=== PATIENT | female | born 1970 | race Caucasian/White ===

== ENCOUNTER → 2017-01-22 | Outpatient (CLI) | payer OTHER ==
[~2017-01-22] MED LIST: PRAV40TA2 PO
[2017-01-22 12:43] LABS: BASO % 0.4 % (0.0-1.0); EOS # 0.2 K/mm3 (0.0-0.50); EOS % 2.3 % (0.0-3.0); LARGE UNSTAINED CELL # 0.1 K/mm3 (0.0-0.4); LARGE UNSTAINED CELL % 1.2 % (0.0-4.0); LYMPH % 20.2 % (24.0-44.0); MEAN CORPUSCULAR HEMOGLOBIN 26.3 pg (27.0-33.0); MEAN CORPUSCULAR HGB CONC 32.6 g/dl (32.0-36.5); MEAN CORPUSCULAR VOLUME 80.8 fl (80.0-96.0); MONO # 0.4 K/mm3 (0.0-0.8); MONO % 4.2 % (0.0-5.0); NEUTROPHILS % 71.6 % (36.0-66.0); PLATELET COUNT, AUTOMATED 211 k/mm3 (150-450); RED CELL DISTRIBUTION WIDTH 14.4 % (11.5-14.5); WHITE BLOOD COUNT 9.7 K/mm3 (4.0-10.0)
[2017-01-22 13:10] LABS: ALBUMIN/GLOBULIN RATIO 1.43 (1.00-1.93); ALKALINE PHOSPHATASE 39 U/L (45-117); ALT/SGPT 17 U/L (12-78); ANION GAP 8 MEQ/L (8-16); AST/SGOT 15 U/L (15-37); BILIRUBIN,TOTAL 0.6 MG/DL (0.2-1.0); BLOOD UREA NITROGEN 11 MG/DL (7-18); CARBON DIOXIDE LEVEL 27 MEQ/L (21-32); CHLORIDE LEVEL 106 MEQ/L (98-107); CHOLESTEROL LEVEL 158 MG/DL (<200); CREATININE FOR GFR 0.73 MG/DL (0.55-1.02); FREE T4 1.08 NG/DL (0.76-1.46); GLOMERULAR FILTRATION RATE > 60.0 (>58); GLUCOSE, FASTING 87 MG/DL (70-105); POTASSIUM SERUM 4.3 MEQ/L (3.5-5.1); SODIUM LEVEL 141 MEQ/L (136-145); TOTAL PROTEIN 6.8 GM/DL (6.4-8.2); TRIGLYCERIDES LEVEL 111 MG/DL (<150)
== END ==
LOC: M LRY 08:00
PROVIDERS: ATTEND Family Medicine
DX: Z13.220 Encounter for screening for lipoid disorders (principal); Z13.0 Encounter for screening for diseases of the blood and blood-forming organs and certain disorders involving the immune mechanism; Z13.29 Encounter for screening for other suspected endocrine disorder

== ENCOUNTER → 2017-03-19 | Outpatient (CLI) | payer OTHER ==
--- NOTE | 2017-03-19 19:36 | REP ---
BILATERAL MAMMOGRAM: Bilateral mammography performed in the MLO and CC projections and compared to multiple prior exams. Most recently 03/06/2016. Moderate fibroglandular tissue is again seen bilaterally. There is a dominant 5 cm nodule in the upper outer quadrant of the left breast. Cysts were previously identified in this region on exams from 2014. No other mass is seen. No clustered microcalcifications are seen. IMPRESSION: 5 cm mass upper outer quadrant left breast probably represents a cyst but I would recommend spot compression views and ultrasound to confirm. ACR 0 incomplete. BI-RADS/ACR category 0 mammogram, incomplete. Additional imaging and/or prior images are needed before a final assessment can be assigned. This mammogram was interpreted with the aid of an FDA-approved computer-aided detection system. The patient states she had a clinical breast exam in 02/2017. The patient letter being requested is M0. Signed by Jonathan Sebastian MD 03/20/2017 05:19 P
== END ==
LOC: M RAD 15:53
PROVIDERS: ATTEND Nurse Practitioner Adult Health
DX: Z12.31 Encounter for screening mammogram for malignant neoplasm of breast (principal)

== ENCOUNTER → 2017-03-27 | Outpatient (CLI) | payer OTHER ==
--- NOTE | 2017-03-27 17:35 | REP ---
Digital diagnostic unilateral left breast mammography with CAD and focused left breast sonography: History: Screening mammography March 06, 2016 was BIRADS category 0 because of a large neodensity projecting in the upper outer quadrant. Comparison is also made with prior mammography from March 06, 2016. Mammographic findings: Magnified focal spot compression CC and MLO views are obtained of the left breast in addition to laterally exaggerated and true ML views. These confirm the presence of a well-circumscribed 4.3 cm soft tissue density in the upper outer quadrant. No spiculation or microcalcification is seen. Breast parenchyma is heterogeneously dense. Sonographic findings: The left breast is scanned from 12 o'clock to 3 o'clock through the upper outer quadrant. Heterogeneously echodense fibroglandular background texture is seen. A large cyst is noted at 1-o'clock to 2-o'clock measuring 3.5 x 4.0 x 1.6 cm. This is anechoic with enhanced through transmission and a well defined back wall consistent with a benign simple cyst. No other significant sonographic finding. Impression: BIRADS category 2 benign left breast imaging. 4.0 cm simple cyst confirmed in the upper outer quadrant of the left breast. Annual screening mammography suggested. BI-RADS/ACR category 2 mammogram. Benign finding(s). Routine annual screening mammography (for women over age 40). This mammogram was interpreted with the aid of an FDA-approved computer-aided detection system. The patient states she/he had a clinical breast exam in February 2017. The patient letter being requested is M1 ([employer]). Signed by Fredo Rice MD 03/28/2017 08:17 A
== END ==
LOC: M RAD 15:43
PROVIDERS: ATTEND Nurse Practitioner Adult Health
DX: R92.2 Inconclusive mammogram (principal)

== ENCOUNTER → 2018-01-22 | Outpatient (CLI) | payer OTHER ==
[2018-01-22 11:43] LABS: BASO # 0.1 10^3/uL (0.0-0.2); BASO % 0.7 % (0.0-1.0); EOS # 0.3 10^3/uL (0.0-0.50); EOS % 2.7 % (0.0-3.0); HEMATOCRIT 44.8 % (36.0-47.0); HEMOGLOBIN 14.5 g/dl (12.0-15.5); IMMATURE GRANULOCYTE % 0.3 % (0-3.0); LYMPH # 2.5 10^3/uL (1.5-4.5); LYMPH % 27.5 % (24.0-44.0); MEAN CORPUSCULAR HEMOGLOBIN 25.6 pg (27.0-33.0); MEAN CORPUSCULAR HGB CONC 32.4 g/dl (32.0-36.5); MONO # 0.6 10^3/uL (0.0-0.8); MONO % 6.5 % (0.0-5.0); NEUTROPHILS # 5.7 10^3/uL (1.8-7.7); NEUTROPHILS % 62.3 % (36.0-66.0); PLATELET COUNT, AUTOMATED 188 10^3/uL (150-450); RED BLOOD COUNT 5.67 10^6/uL (4.00-5.40); RED CELL DISTRIBUTION WIDTH 15.2 % (11.5-14.5); WHITE BLOOD COUNT 9.1 10^3/uL (4.0-10.0)
[2018-01-22 12:12] LABS: ALBUMIN 3.9 GM/DL (3.2-5.2); ALBUMIN/GLOBULIN RATIO 1.22 (1.00-1.93); ALKALINE PHOSPHATASE 48 U/L (45-117); ALT/SGPT 24 U/L (12-78); ANION GAP 9 MEQ/L (8-16); AST/SGOT 16 U/L (7-37); BILIRUBIN,TOTAL 0.5 MG/DL (0.2-1.0); BLOOD UREA NITROGEN 9 MG/DL (7-18); CALCIUM LEVEL 8.6 MG/DL (8.5-10.1); CARBON DIOXIDE LEVEL 27 MEQ/L (21-32); CHLORIDE LEVEL 106 MEQ/L (98-107); CHOLESTEROL LEVEL 156 MG/DL (<200); CREATININE FOR GFR 0.75 MG/DL (0.55-1.30); FREE T4 1.03 NG/DL (0.76-1.46); GLOMERULAR FILTRATION RATE > 60.0 (>51); GLUCOSE, FASTING 80 MG/DL (70-100); HDL CHOLESTEROL 50 MG/DL (>40); LDL CHOLESTEROL 80.6 MG/DL (<100); NON-HDL-C 106 MG/DL; POTASSIUM SERUM 4.5 MEQ/L (3.5-5.1); SODIUM LEVEL 142 MEQ/L (136-145); TOTAL PROTEIN 7.1 GM/DL (6.4-8.2); TRIGLYCERIDES LEVEL 127 MG/DL (<150)
== END ==
LOC: M LRY 08:41
DX: E78.00 Pure hypercholesterolemia, unspecified (principal); Z13.29 Encounter for screening for other suspected endocrine disorder; Z13.0 Encounter for screening for diseases of the blood and blood-forming organs and certain disorders involving the immune mechanism
CPT/HCPCS: 84443

== ENCOUNTER → 2018-03-21 | Outpatient (CLI) | payer OTHER | LOC: M RAD 17:19 | DX: Z12.31 Encounter for screening mammogram for malignant neoplasm of breast (principal); N60.02 Solitary cyst of left breast | CPT/HCPCS: 77067 ==

== ENCOUNTER → 2018-08-12 | Outpatient (CLI) | payer OTHER ==
--- NOTE | 2018-08-13 09:31 | REP ---
Clinical: Varicose veins and venous insufficiency. Technique: Real time crawley scale and color Doppler evaluation using linear high frequency transducer with reflux evaluation. Findings: Ultrasound examination of the right lower extremity deep venous structures from the common femoral vein to the popliteal vein demonstrates normal compressibility, flow, and wave patterns in response to respiration and augmentation without evidence for deep venous thrombosis. Reflux evaluation demonstrates thrombosed distal greater saphenous vein consistent with given history of prior ablation. Reflux is identified within the visualized common femoral vein as well as the proximal to mid greater saphenous vein measuring 10 mm diameter at the saphenofemoral junction with 3.4 seconds reflux duration and measuring 6 mm diameter at the mid thigh with 5.6 seconds reflux duration. Varicosities with associated reflux identified with in the calf draining into the deep venous system through multiple perforators. Impression: 1. No evidence for deep venous thrombosis. 2. Reflux noted through the proximal/mid greater saphenous vein as well as through multiple varicosities at the level of the calf. Electronically Signed by Michele Virk MD 08/13/2018 09:22 A
== END ==
LOC: M RAD 10:17
PROVIDERS: ATTEND Surgery Vascular Surgery
DX: I87.2 Venous insufficiency (chronic) (peripheral) (principal)

== ENCOUNTER → 2018-08-19 | Outpatient (CLI) | payer OTHER ==
--- NOTE | 2018-08-19 16:43 | REP ---
Clinical: Abnormal uterine bleeding . Technique: Transabdominal pelvic ultrasound followed by transvaginal examination for better evaluation of the endometrium and adnexa with color Doppler evaluation of the ovaries. Findings: Bladder this is unremarkable and measures 11.3 x 8.8 x 9.2 cm . Heterogeneous anteverted uterus measures 7.6 x 3.5 x 4.7 cm. The endometrial complex measures 8.2 mm thickness and appears heterogeneous with possible ill-defined polyp cannot be excluded. No discrete uterine or endometrial abnormalities are appreciated. Small Nabothian cyst noted. Bilateral ovaries are normal in appearance and vascularity without evidence for torsion. Right ovary measures 2.9 x 1.9 x 1.5 cm ; R I = 0.60 . Left ovary measures 2.8 x 1.9 x 1.7 cm ; R I = 0.43. No pelvic fluid or adnexal mass lesion. Impression: 1. Heterogeneous uterus and endometrial complex. See small ill-defined endometrial polyp cannot be excluded. Electronically Signed by Michele Virk MD 08/19/2018 04:34 P
== END ==
LOC: M RAD 15:48
PROVIDERS: ATTEND Nurse Practitioner Adult Health
DX: N85.8 Other specified noninflammatory disorders of uterus (principal); N85.4 Malposition of uterus

== ENCOUNTER → 2019-02-19 | Outpatient (CLI) | payer OTHER ==
[2019-02-19 11:41] LABS: BASO # 0.1 10^3/uL (0.0-0.2); BASO % 0.9 % (0.0-1.0); EOS # 0.4 10^3/uL (0.0-0.50); EOS % 4.1 % (0.0-3.0); HEMATOCRIT 44.8 % (36.0-47.0); HEMOGLOBIN 14.6 g/dl (12.0-15.5); LYMPH # 2.4 10^3/uL (1.5-4.5); LYMPH % 27.9 % (24.0-44.0); MEAN CORPUSCULAR HEMOGLOBIN 25.9 pg (27.0-33.0); MEAN CORPUSCULAR HGB CONC 32.6 g/dl (32.0-36.5); MEAN CORPUSCULAR VOLUME 79.4 fl (80.0-96.0); MONO # 0.6 10^3/uL (0.0-0.8); MONO % 7.4 % (0.0-5.0); NEUTROPHILS # 5.1 10^3/uL (1.8-7.7); NEUTROPHILS % 59.3 % (36.0-66.0); PLATELET COUNT, AUTOMATED 206 10^3/uL (150-450); RED BLOOD COUNT 5.64 10^6/uL (4.00-5.40); WHITE BLOOD COUNT 8.5 10^3/uL (4.0-10.0)
[2019-02-19 12:02] LABS: ALT/SGPT 25 U/L (12-78); BILIRUBIN,TOTAL 0.7 MG/DL (0.2-1.0); BLOOD UREA NITROGEN 10 MG/DL (7-18); CALCIUM LEVEL 9.5 MG/DL (8.5-10.1); CARBON DIOXIDE LEVEL 27 MEQ/L (21-32); CHLORIDE LEVEL 108 MEQ/L (98-107); CHOLESTEROL LEVEL 166 MG/DL (<200); CHOLESTEROL RISK RATIO 3.254 (<5); CREATININE FOR GFR 0.73 MG/DL (0.55-1.30); FREE T4 0.99 NG/DL (0.76-1.46); GLOMERULAR FILTRATION RATE > 60.0 (>51); GLUCOSE, FASTING 79 MG/DL (70-100); HDL CHOLESTEROL 51 MG/DL (>40); LDL CHOLESTEROL 95 MG/DL (<100); NON-HDL-C 115 MG/DL; POTASSIUM SERUM 4.3 MEQ/L (3.5-5.1); SODIUM LEVEL 141 MEQ/L (136-145); TRIGLYCERIDES LEVEL 101 MG/DL (<150)
== END ==
LOC: M LRY 08:04
PROVIDERS: ATTEND Family Medicine
DX: E78.00 Pure hypercholesterolemia, unspecified (principal); Z13.0 Encounter for screening for diseases of the blood and blood-forming organs and certain disorders involving the immune mechanism; Z13.29 Encounter for screening for other suspected endocrine disorder

== ENCOUNTER → 2019-04-15 | Outpatient (CLI) | payer OTHER ==
--- NOTE | 2019-04-15 14:12 | REPMRS ---
Patient History The patient states she had a clinical breast exam in September 2018.Family history of colorectal cancer at age 34 in brother, colorectal cancer at age 50 or over in maternal grandmother. Benign lumpectomy of the right breast, June 01, 2008. 3D TOMOSYNTHESIS WAS PERFORMED. [facility]%. Digital Mammo Screening Bilat: April 15, 2019 - Exam #: [id number] Bilateral CC and MLO view(s) were taken. Technologist: Marcela Cramer, Technologist Prior study comparison: October 11, 2018, left breast digital mammo diagnostic unilateral performed at [facility]. March 21, 2018, bilateral digital mammo screening bilat performed at [facility]. FINDINGS: The breast tissue is heterogeneously dense. This may lower the sensitivity of mammography. There has been no change in the appearance of the mammogram from the prior studies. There is a moderate amount of residual fibroglandular tissue which is fairly symmetric. There is no interval development of dominant mass, areas of architectural distortion, or clustered microcalcification typical of malignancy. The left breast cyst has decreased in size. Assessment: BI-RADS/ACR category 1 mammogram. Negative Mammogram. Recommendation Routine screening mammogram in 1 year (for women over age 40). This mammogram was interpreted with the aid of an FDA-approved computer-aided dectection system. Electronically Signed By: Jonathan Sebastian MD 04/15/19 [id number]
== END ==
LOC: M RAD 12:46
PROVIDERS: ATTEND Family Medicine
DX: Z12.31 Encounter for screening mammogram for malignant neoplasm of breast (principal); Z80.0 Family history of malignant neoplasm of digestive organs

== ENCOUNTER → 2019-09-08 | Outpatient (CLI) | payer OTHER ==
[2019-09-08 16:13] LABS: BASO # 0.1 10^3/uL (0.0-0.2); EOS # 0.2 10^3/uL (0.0-0.5); EOS % 1.9 % (0.0-3.0); HEMATOCRIT 44.5 % (36.0-47.0); HEMOGLOBIN 14.1 g/dl (12.0-15.5); LYMPH # 2.5 10^3/uL (1.5-5.0); LYMPH % 26.1 % (24.0-44.0); MEAN CORPUSCULAR HEMOGLOBIN 25.2 pg (27.0-33.0); MEAN CORPUSCULAR HGB CONC 31.7 g/dl (32.0-36.5); MEAN CORPUSCULAR VOLUME 79.5 fl (80.0-96.0); MONO # 0.6 10^3/uL (0.0-0.8); MONO % 6.1 % (0.0-5.0); NEUTROPHILS # 6.1 10^3/uL (1.5-8.5); NEUTROPHILS % 64.5 % (36.0-66.0); PLATELET COUNT, AUTOMATED 208 10^3/uL (150-450); WHITE BLOOD COUNT 9.4 10^3/uL (4.0-10.0)
[2019-09-08 16:24] LABS: ALBUMIN 4.2 GM/DL (3.2-5.2); ALT/SGPT 345 U/L (12-78); BILIRUBIN,TOTAL 0.7 MG/DL (0.2-1.0); BLOOD UREA NITROGEN 12 MG/DL (7-18); C REACTIVE PROTEIN QUANTITATIV < 0.30 MG/DL (0.00-0.30); CALCIUM LEVEL 9.2 MG/DL (8.5-10.1); CARBON DIOXIDE LEVEL 27 MEQ/L (21-32); CHLORIDE LEVEL 106 MEQ/L (98-107); CREATININE FOR GFR 0.68 MG/DL (0.55-1.30); FREE T4 1.31 NG/DL (0.76-1.46); GLOMERULAR FILTRATION RATE > 60.0 (>51); GLUCOSE, FASTING 94 MG/DL (70-100); IRON (FE) 132 UG/DL (50-170); PERCENT SATURATION 39.4 % (13.2-45.0); SODIUM LEVEL 140 MEQ/L (136-145); THYROID STIMULATING HORMONE 0.543 uIU/ML (0.358-3.740); TOTAL IRON BINDING CAPACITY 335 UG/DL (250-450); TOTAL PROTEIN 7.7 GM/DL (6.4-8.2)
[2019-09-08 16:35] LABS: ERYTHROCYTE SEDIMENTATION RATE 5 mm/hr (0-30)
--- NOTE | 2019-09-08 20:20 | REP ---
Clinical: Cough . Comparison: None. Technique: PA and lateral. Findings: The mediastinum and cardiac silhouette are normal. The lung deshpande are clear and without acute consolidation, effusion, or pneumothorax. The skeletal structures are intact and normal. Impression: 1. No acute cardiopulmonary process. Electronically Signed by Michele Virk MD 09/08/2019 08:12 P
[2019-09-10 14:07] LABS: Lyme Disease IgG/IgM Antibodie <0.91 ISR (0.00-0.90); Lyme Disease IgM Ab Quantitati <0.80 index (0.00-0.79)
== END ==
LOC: M WUC 11:14
PROVIDERS: ATTEND Family Medicine
DX: R05 Cough (principal); R53.83 Other fatigue

== ENCOUNTER → 2019-09-18 | Outpatient (CLI) | payer OTHER ==
[2019-09-18 11:37] LABS: BASO # 0.1 10^3/uL (0.0-0.2); BASO % 1.3 % (0.0-1.0); EOS # 0.2 10^3/uL (0.0-0.5); EOS % 2.4 % (0.0-3.0); HEMATOCRIT 41.9 % (36.0-47.0); HEMOGLOBIN 13.8 g/dl (12.0-15.5); LYMPH # 2.5 10^3/uL (1.5-5.0); LYMPH % 31.2 % (24.0-44.0); MEAN CORPUSCULAR HGB CONC 32.9 g/dl (32.0-36.5); MEAN CORPUSCULAR VOLUME 79.1 fl (80.0-96.0); MONO # 0.6 10^3/uL (0.0-0.8); MONO % 7.7 % (0.0-5.0); NEUTROPHILS # 4.6 10^3/uL (1.5-8.5); PLATELET COUNT, AUTOMATED 257 10^3/uL (150-450)
[2019-09-18 12:04] LABS: ALBUMIN 4.1 GM/DL (3.2-5.2); ALT/SGPT 58 U/L (12-78); BILIRUBIN,TOTAL 0.5 MG/DL (0.2-1.0); BLOOD UREA NITROGEN 13 MG/DL (7-18); CALCIUM LEVEL 9.4 MG/DL (8.5-10.1); CARBON DIOXIDE LEVEL 27 MEQ/L (21-32); CHLORIDE LEVEL 105 MEQ/L (98-107); GLOMERULAR FILTRATION RATE > 60.0 (>51); GLUCOSE, FASTING 81 MG/DL (70-100); POTASSIUM SERUM 4.5 MEQ/L (3.5-5.1); SODIUM LEVEL 139 MEQ/L (136-145); TOTAL PROTEIN 7.4 GM/DL (6.4-8.2)
== END ==
LOC: M LRY 09:15
PROVIDERS: ATTEND Family Medicine
DX: R74.8 Abnormal levels of other serum enzymes (principal)

== ENCOUNTER → 2020-03-27 | Outpatient (CLI) | payer OTHER ==
[2020-03-27 12:50] LABS: BASO # 0.1 10^3/uL (0.0-0.2); BASO % 0.9 % (0.0-1.0); EOS # 0.3 10^3/uL (0.0-0.5); EOS % 3.1 % (0.0-3.0); HEMATOCRIT 44.9 % (36.0-47.0); HEMOGLOBIN 14.4 g/dl (12.0-15.5); LYMPH # 2.5 10^3/uL (1.5-5.0); LYMPH % 28.6 % (24.0-44.0); MEAN CORPUSCULAR HEMOGLOBIN 25.5 pg (27.0-33.0); MEAN CORPUSCULAR HGB CONC 32.1 g/dl (32.0-36.5); MEAN CORPUSCULAR VOLUME 79.6 fl (80.0-96.0); MONO # 0.6 10^3/uL (0.0-0.8); MONO % 6.6 % (0.0-5.0); NEUTROPHILS # 5.4 10^3/uL (1.5-8.5); NEUTROPHILS % 60.5 % (36.0-66.0); PLATELET COUNT, AUTOMATED 214 10^3/uL (150-450); RED BLOOD COUNT 5.64 10^6/uL (4.00-5.40); WHITE BLOOD COUNT 8.9 10^3/uL (4.0-10.0)
[2020-03-27 13:20] LABS: ALBUMIN 3.9 GM/DL (3.2-5.2); ALT/SGPT 24 U/L (12-78); BILIRUBIN,TOTAL 0.4 MG/DL (0.2-1.0); BLOOD UREA NITROGEN 14 MG/DL (7-18); CALCIUM LEVEL 8.8 MG/DL (8.5-10.1); CARBON DIOXIDE LEVEL 25 MEQ/L (21-32); CHLORIDE LEVEL 108 MEQ/L (98-107); CHOLESTEROL LEVEL 186 MG/DL (<200); CHOLESTEROL RISK RATIO 3.206 (<5); CREATININE FOR GFR 0.76 MG/DL (0.55-1.30); FREE T4 1.06 NG/DL (0.76-1.46); GLOMERULAR FILTRATION RATE > 60.0 (>51); GLUCOSE, FASTING 81 MG/DL (70-100); HDL CHOLESTEROL 58 MG/DL (>40); LDL CHOLESTEROL 114 MG/DL (<100); NON-HDL-C 128 MG/DL; POTASSIUM SERUM 4.4 MEQ/L (3.5-5.1); SODIUM LEVEL 140 MEQ/L (136-145); TOTAL PROTEIN 7.1 GM/DL (6.4-8.2); TRIGLYCERIDES LEVEL 69 MG/DL (<150)
== END ==
LOC: M WUC 08:53
PROVIDERS: ATTEND Family Medicine
DX: E78.00 Pure hypercholesterolemia, unspecified (principal); Z13.29 Encounter for screening for other suspected endocrine disorder; Z13.0 Encounter for screening for diseases of the blood and blood-forming organs and certain disorders involving the immune mechanism

== ENCOUNTER → 2020-04-16 | Outpatient (CLI) | payer OTHER ==
--- NOTE | 2020-04-16 15:03 | REPMRS ---
Patient History The patient states she had a clinical breast exam in 03/2020. Patient is nulliparous. Family history of colorectal cancer at age 34 in brother, colorectal cancer at age 50 or over in maternal grandmother. Benign lumpectomy of the right breast, June 01, 2008. No Hormone Replacement Therapy 3D TOMOSYNTHESIS WAS PERFORMED. [facility] lifetime risk for breast cancer is 11.4%. Volpara breast density b. Digital Woman Screen Mammo: April 16, 2020 - Exam #: [id number] Bilateral CC and MLO view(s) were taken. Technologist: Priscilla Barraza, Technologist Prior study comparison: April 15, 2019, bilateral digital mammo screening bilat, performed at [facility]. October 11, 2018, left breast digital mammo diagnostic unilateral, performed at [facility]. FINDINGS: The breast tissue is heterogeneously dense. This may lower the sensitivity of mammography. There is a fairly symmetric fibroglandular pattern in both breasts. There has been no interval development of masses, areas of architectural distortion or clusters of microcalcifications typical of malignancy. The left breast cyst is again noted unchanged. No significant changes when compared with prior studies. Assessment: BI-RADS/ACR category 2 mammogram. Benign Findings. Recommendation Routine screening mammogram of both breasts in 1 year (for women over age 40). This mammogram was interpreted with the aid of an FDA-approved computer-aided dectection system. Electronically Signed By: Jonathan Sebastian MD 04/16/20 [id number]
== END ==
LOC: M WHC 13:30
PROVIDERS: ATTEND Family Medicine
DX: Z12.31 Encounter for screening mammogram for malignant neoplasm of breast (principal)

== ENCOUNTER 2021-02-09 19:42 | Emergency (ER) | payer OTHER ==
[~2021-02-09] VITALS: Ht 160 cm; Wt 69.9 kg
[2021-02-09 19:42] VITALS: BP 139/82
== END 2021-02-09 19:49 | disposition left against medical advice (07) ==
LOC: M ED 19:42
DX: Z53.29 Procedure and treatment not carried out because of patient's decision for other reasons (principal)

== ENCOUNTER → 2021-04-04 | Outpatient (CLI) | payer OTHER ==
[2021-04-04 14:53] LABS: BASO # 0.1 10^3/uL (0.0-0.2); BASO % 0.7 % (0.0-1.0); EOS # 0.2 10^3/uL (0.0-0.5); EOS % 3.2 % (0.0-3.0); HEMATOCRIT 44.7 % (36.0-47.0); HEMOGLOBIN 14.1 g/dl (12.0-15.5); LYMPH # 2.3 10^3/uL (1.5-5.0); LYMPH % 31.1 % (24.0-44.0); MEAN CORPUSCULAR HEMOGLOBIN 25.1 pg (27.0-33.0); MEAN CORPUSCULAR HGB CONC 31.5 g/dl (32.0-36.5); MEAN CORPUSCULAR VOLUME 79.5 fl (80.0-96.0); MONO # 0.6 10^3/uL (0.0-0.8); MONO % 7.6 % (2.0-8.0); NEUTROPHILS # 4.2 10^3/uL (1.5-8.5); NEUTROPHILS % 57.1 % (36.0-66.0); PLATELET COUNT, AUTOMATED 207 10^3/uL (150-450); RED BLOOD COUNT 5.62 10^6/uL (4.00-5.40); WHITE BLOOD COUNT 7.4 10^3/uL (4.0-10.0)
[2021-04-04 15:52] LABS: ALBUMIN 3.9 GM/DL (3.2-5.2); ALT/SGPT 18 U/L (12-78); BILIRUBIN,TOTAL 0.4 MG/DL (0.2-1.0); BLOOD UREA NITROGEN 12 MG/DL (7-18); CALCIUM LEVEL 9.8 MG/DL (8.5-10.1); CARBON DIOXIDE LEVEL 28 MEQ/L (21-32); CHLORIDE LEVEL 108 MEQ/L (98-107); CHOLESTEROL LEVEL 174 MG/DL (<200); CHOLESTEROL RISK RATIO 3.866 (<5); CREATININE FOR GFR 0.72 MG/DL (0.55-1.30); FREE T4 1.13 NG/DL (0.76-1.46); GLOMERULAR FILTRATION RATE > 60.0 (>51); GLUCOSE, FASTING 89 MG/DL (70-100); HDL CHOLESTEROL 45 MG/DL (>40); LDL CHOLESTEROL 111 MG/DL (<100); NON-HDL-C 129 MG/DL; POTASSIUM SERUM 4.2 MEQ/L (3.5-5.1); SODIUM LEVEL 140 MEQ/L (136-145); TOTAL PROTEIN 7.1 GM/DL (6.4-8.2); TRIGLYCERIDES LEVEL 92 MG/DL (<150)
== END ==
LOC: M WUC 08:06
PROVIDERS: ATTEND Family Medicine
DX: E78.00 Pure hypercholesterolemia, unspecified (principal); Z13.0 Encounter for screening for diseases of the blood and blood-forming organs and certain disorders involving the immune mechanism; Z13.29 Encounter for screening for other suspected endocrine disorder

== ENCOUNTER → 2021-04-18 | Outpatient (CLI) | payer OTHER ==
--- NOTE | 2021-04-18 10:58 | REP ---
INDICATION: PLEURODYNIA. COMPARISON: PA and lateral chest, 09/08/2019 TECHNIQUE: Upright PA chest image supplemented by port ischial views of the left-sided ribs were obtained. FINDINGS: The lungs are clear. The heart borders, mediastinum and pulmonary vascular pattern normal. The upper abdominal bowel gas pattern is normal. There is mild dextroscoliosis of the thoracic spine. Examination the left ribs demonstrates no evidence of fracture. There is no evidence of pneumothorax, pulmonary contusion or pleural effusion. IMPRESSION: 1. No evidence of acute cardiopulmonary pathology. 2. No evidence of left rib fractures. <Electronically signed by Louis Neely > 04/18/21 [id number]
== END ==
LOC: M PLAIMG 10:16
PROVIDERS: ATTEND Family Medicine
DX: R07.81 Pleurodynia (principal)

== ENCOUNTER → 2021-05-04 | Outpatient (CLI) | payer OTHER ==
--- NOTE | 2021-05-04 16:54 | REPMRS ---
Patient History The patient states she has not had a clinical breast exam in over a year. Family history of colorectal cancer at age 34 in brother, colorectal cancer at age 50 or over in maternal grandmother. Benign lumpectomy of the right breast, June 01, 2008. No Hormone Replacement Therapy Tomosynthesis is performed. Volpara breast density is b. [facility] lifetime risk of breast cancer 11.1%. Patient states no breast complaints today. Patient has signed MRS History Sheet. Digital Woman Screen Mammo: May 04, 2021 - Exam #: [id number] Bilateral CC and MLO view(s) were taken. Technologist: Anette Sultana, Technologist Prior study comparison: April 16, 2020, bilateral digital woman screen mammo performed at [facility]. April 15, 2019, bilateral digital mammo screening bilat, performed at [facility]. FINDINGS: The breast tissue is heterogeneously dense. This may lower the sensitivity of mammography. There is a fairly symmetric fibroglandular pattern in both breasts. There has been no interval development of masses, areas of architectural distortion or clusters of microcalcifications typical of malignancy. There is a stable cyst in the upper outer quadrant of the left breast. No significant changes when compared with prior studies. Assessment: BI-RADS/ACR category 2 mammogram. Benign Findings. Recommendation Routine screening mammogram in 1 year (for women over age 40). This mammogram was interpreted with the aid of an FDA-approved computer-aided dectection system. Electronically Signed By: Jonathan Sebastian MD 05/04/21 1234
== END ==
LOC: M WHC 15:41
PROVIDERS: ATTEND Family Medicine
DX: Z12.31 Encounter for screening mammogram for malignant neoplasm of breast (principal)

== ENCOUNTER 2021-07-14 10:37 | Day surgery (SDC) | payer OTHER ==
[~2021-07-14] VITALS: Ht 160 cm; Wt 68.9 kg
[~2021-07-14 10:37] MED LIST changes: +NS 1,000 ML IV ONE; +RA T500C2 PO
[2021-07-14] MEDS ORDERED: propofoL 500 MG/50 ML VIAL As Ordered ONE (11:16)
[2021-07-14] MEDS ORDERED: fentaNYL 100 MCG/2 ML INJECTION (J3010) As Ordered ONE (12:07)
[2021-07-14 12:58] VITALS: BP 104/65
== END 2021-07-14 13:07 | disposition home or self-care (01) ==
LOC: M OPP 10:37
PROVIDERS: ATTEND Internal Medicine Gastroenterology
DX: Z12.11 Encounter for screening for malignant neoplasm of colon (principal); Z86.010 Personal history of colon polyps; Z80.0 Family history of malignant neoplasm of digestive organs; Z80.8 Family history of malignant neoplasm of other organs or systems; K57.30 Diverticulosis of large intestine without perforation or abscess without bleeding; K64.8 Other hemorrhoids; Z15.09 Genetic susceptibility to other malignant neoplasm; K22.89 Other specified disease of esophagus; R12 Heartburn; K31.89 Other diseases of stomach and duodenum; Z79.899 Other long term (current) drug therapy; Z88.1 Allergy status to other antibiotic agents; Z88.8 Allergy status to other drugs, medicaments and biological substances; F17.210 Nicotine dependence, cigarettes, uncomplicated
CPT/HCPCS: 43239; 45378; 88305; J3010

== ENCOUNTER 2021-11-12 12:40 | Emergency (ER) | payer OTHER ==
[~2021-11-12] VITALS: Ht 160 cm; Wt 68.6 kg
[~2021-11-12 12:40] MED LIST changes: -NS 1,000 ML IV ONE
[2021-11-12] MEDS ORDERED: LORazepam 2 MG/ML VIAL IV STA (13:05)
[2021-11-12] MEDS ORDERED: MORPHINE 4 MG/ML 1ML VIAL/SYRINGE IV PRN (13:05)
[2021-11-12] MEDS ORDERED: ONDANSETRON 4MG/2ML VIAL IV ONE (13:05)
[2021-11-12] MEDS ORDERED: BOOSTRIX/ADACEL VACCINE (DIPHTH/PERTUSS/ACELL/TETANUS) 0.5ML SYR IM ONE (13:35)
[2021-11-12] MEDS ORDERED: NS 1,000 ML IV SCH (13:40)
[2021-11-12] MEDS ORDERED: propofoL 200 MG/20 ML VIAL IV.PROC PRN (13:40)
[2021-11-12] MEDS ORDERED: LevoFLOXacin IV 500 MG in IV 1 EA IV ONE (14:10)
[2021-11-12 14:20] VITALS: BP 139/71
[2021-11-12] MEDS ORDERED: LEVO500T4 PO (14:53)
== END 2021-11-12 15:51 | disposition home or self-care (01) ==
LOC: EDBD 12:40 → M ED 12:40
DX: S91.342A Puncture wound with foreign body, left foot, initial encounter (principal); W27.1XXA Contact with garden tool, initial encounter; Y92.018 Other place in single-family (private) house as the place of occurrence of the external cause; I10 Essential (primary) hypertension; Z88.0 Allergy status to penicillin; Z88.8 Allergy status to other drugs, medicaments and biological substances; Z79.899 Other long term (current) drug therapy
CPT/HCPCS: 73620; 73630; 90471; 90715; 93041; 96365; 96375; 99152; 99285; J1956; J2060; J2270; J2405

== ENCOUNTER → 2022-05-08 | Outpatient (CLI) | payer OTHER ==
[~2022-05-08] MED LIST changes: +LEVO1TAB39 PO
== END ==
LOC: M WHC 16:00
PROVIDERS: ATTEND Family Medicine
DX: Z12.31 Encounter for screening mammogram for malignant neoplasm of breast (principal)

== ENCOUNTER → 2022-09-22 | Outpatient (REF) | payer OTHER ==
[2022-09-22 12:01] LABS: BASO # 0.1 10^3/uL (0.0-0.2); BASO % 0.9 % (0.0-1.0); EOS # 0.2 10^3/uL (0.0-0.5); HEMATOCRIT 42.7 % (36.0-47.0); HEMOGLOBIN 13.5 g/dl (12.0-15.5); LYMPH # 2.3 10^3/uL (1.5-5.0); MEAN CORPUSCULAR HEMOGLOBIN 25.1 pg (27.0-33.0); MEAN CORPUSCULAR HGB CONC 31.6 g/dl (32.0-36.5); MEAN CORPUSCULAR VOLUME 79.5 fl (80.0-96.0); MONO # 0.6 10^3/uL (0.0-0.8); MONO % 6.8 % (2.0-8.0); NEUTROPHILS # 4.9 10^3/uL (1.5-8.5); NEUTROPHILS % 60.8 % (36.0-66.0); PLATELET COUNT, AUTOMATED 200 10^3/uL (150-450); RED BLOOD COUNT 5.37 10^6/uL (4.00-5.40)
[2022-09-22 12:09] LABS: ALBUMIN 4.2 G/DL (3.2-5.2); ALKALINE PHOSPHATASE 58 U/L (46-116); ALT/SGPT 25 U/L (7.0-40); AST/SGOT 27 U/L (<34); BILIRUBIN,TOTAL 0.6 MG/DL (0.3-1.2); BLOOD UREA NITROGEN 14 MG/DL (9-23); CALCIUM LEVEL 9.6 MG/DL (8.5-10.1); CARBON DIOXIDE LEVEL 29 MMOL/L (20-31); CHLORIDE LEVEL 106 MMOL/L (98-107); CHOLESTEROL LEVEL 143 MG/DL (<200); CHOLESTEROL RISK RATIO 2.62 (<5); CREATININE FOR GFR 0.68 MG/DL (0.55-1.30); FREE T4 1.13 NG/DL (0.89-1.76); GLOMERULAR FILTRATION RATE > 60.0 (>51); GLUCOSE, FASTING 88 MG/DL (60-100); HDL CHOLESTEROL 54.5 MG/DL (>40); LDL CHOLESTEROL 75.1 MG/DL (<100); NON-HDL-C 88.5 MG/DL; POTASSIUM SERUM 4.2 MMOL/L (3.5-5.1); SODIUM LEVEL 139 MMOL/L (136-145); THYROID STIMULATING HORMONE 1.065 uIU/ML (0.55-4.78); TOTAL PROTEIN 6.7 G/DL (5.7-8.2); TRIGLYCERIDES LEVEL 67 MG/DL (<150)
== END ==
LOC: M LABDRAWC 11:11
PROVIDERS: ATTEND Family Medicine
DX: E78.00 Pure hypercholesterolemia, unspecified (principal)

== ENCOUNTER → 2022-10-12 | Outpatient (CLI) | payer OTHER ==
[~2022-10-12] MED LIST changes: +E-Z-GAS II EFFERVESCENT PACKET (SODIUM BICARB./CITRIC ACID/SIMETHICONE) As Ordered ONE; +E-Z-HD 98% w/w 340GM SUSP BTL As Ordered ONE; +E-Z-PAQUE 96% w/w SUSP 176GM BTL As Ordered ONE
== END ==
LOC: M RAD 09:01
PROVIDERS: ATTEND Physician Assistant Medical
DX: R11.10 Vomiting, unspecified (principal); R12 Heartburn; K44.9 Diaphragmatic hernia without obstruction or gangrene

== ENCOUNTER → 2022-10-25 | Outpatient (CLI) | payer OTHER ==
[~2022-10-25] MED LIST changes: -E-Z-GAS II EFFERVESCENT PACKET (SODIUM BICARB./CITRIC ACID/SIMETHICONE) As Ordered ONE; -E-Z-HD 98% w/w 340GM SUSP BTL As Ordered ONE; -E-Z-PAQUE 96% w/w SUSP 176GM BTL As Ordered ONE
== END ==
LOC: M RAD 11:30
PROVIDERS: ATTEND Physician Assistant Medical
DX: R11.10 Vomiting, unspecified (principal)
CPT/HCPCS: 78264; A9541

== ENCOUNTER → 2023-04-10 | Outpatient (REF) | payer OTHER ==
[2023-04-10 13:10] LABS: BASO # 0.1 10^3/uL (0.0-0.2); BASO % 0.8 % (0.0-1.0); EOS # 0.2 10^3/uL (0.0-0.5); EOS % 3.1 % (0.0-3.0); HEMATOCRIT 44.7 % (36.0-47.0); LYMPH # 2.1 10^3/uL (1.5-5.0); LYMPH % 27.9 % (24.0-44.0); MEAN CORPUSCULAR HEMOGLOBIN 24.8 pg (27.0-33.0); MEAN CORPUSCULAR HGB CONC 31.3 g/dl (32.0-36.5); MEAN CORPUSCULAR VOLUME 79.1 fl (80.0-96.0); MONO # 0.5 10^3/uL (0.0-0.8); NEUTROPHILS # 4.6 10^3/uL (1.5-8.5); NEUTROPHILS % 61.1 % (36.0-66.0); PLATELET COUNT, AUTOMATED 201 10^3/uL (150-450); RED BLOOD COUNT 5.65 10^6/uL (4.00-5.40); WHITE BLOOD COUNT 7.5 10^3/uL (4.0-10.0)
[2023-04-10 13:17] LABS: ALKALINE PHOSPHATASE 68 U/L (46-116); ALT/SGPT 21 U/L (7.0-40); AST/SGOT 21 U/L (<34); BILIRUBIN,TOTAL 0.4 MG/DL (0.3-1.2); BLOOD UREA NITROGEN 14 MG/DL (9-23); CALCIUM LEVEL 9.2 MG/DL (8.5-10.1); CARBON DIOXIDE LEVEL 28 MMOL/L (20-31); CHLORIDE LEVEL 108 MMOL/L (98-107); CHOLESTEROL LEVEL 153 MG/DL (<200); CHOLESTEROL RISK RATIO 2.95 (<5); CREATININE FOR GFR 0.67 MG/DL (0.55-1.30); FREE T4 1.07 NG/DL (0.89-1.76); GLOMERULAR FILTRATION RATE > 60.0 (>51); GLUCOSE, FASTING 96 MG/DL (60-100); HDL CHOLESTEROL 51.7 MG/DL (>40); LDL CHOLESTEROL 83.9 MG/DL (<100); NON-HDL-C 101.3 MG/DL; POTASSIUM SERUM 4.2 MMOL/L (3.5-5.1); SODIUM LEVEL 143 MMOL/L (136-145); THYROID STIMULATING HORMONE 1.622 uIU/ML (0.55-4.78); TOTAL PROTEIN 6.9 G/DL (5.7-8.2); TRIGLYCERIDES LEVEL 87 MG/DL (<150)
== END ==
LOC: M LABDRAWC 11:25
PROVIDERS: ATTEND Family Medicine
DX: E78.00 Pure hypercholesterolemia, unspecified (principal)

== ENCOUNTER → 2023-05-16 | Outpatient (CLI) | payer OTHER | LOC: M WHC 09:32 | PROVIDERS: ATTEND Family Medicine | DX: Z12.31 Encounter for screening mammogram for malignant neoplasm of breast (principal); Z13.820 Encounter for screening for osteoporosis ==

== ENCOUNTER → 2023-10-16 | Outpatient (CLI) | payer OTHER ==
[2023-10-16 11:03] LABS: BASO # 0.1 10^3/uL (0.0-0.2); EOS # 0.2 10^3/uL (0.0-0.5); EOS % 2.6 % (0.0-3.0); HEMATOCRIT 45.6 % (36.0-47.0); HEMOGLOBIN 14.4 g/dl (12.0-15.5); LYMPH # 2.9 10^3/uL (1.5-5.0); LYMPH % 32.9 % (24.0-44.0); MEAN CORPUSCULAR HEMOGLOBIN 24.7 pg (27.0-33.0); MEAN CORPUSCULAR HGB CONC 31.6 g/dl (32.0-36.5); MEAN CORPUSCULAR VOLUME 78.4 fl (80.0-96.0); MONO # 0.6 10^3/uL (0.0-0.8); MONO % 6.4 % (2.0-8.0); NEUTROPHILS # 4.9 10^3/uL (1.5-8.5); NEUTROPHILS % 56.9 % (36.0-66.0); PLATELET COUNT, AUTOMATED 199 10^3/uL (150-450); RED BLOOD COUNT 5.82 10^6/uL (4.00-5.40); WHITE BLOOD COUNT 8.7 10^3/uL (4.0-10.0)
[2023-10-16 12:04] LABS: ALBUMIN 4.2 G/DL (3.2-5.2); ALKALINE PHOSPHATASE 69 U/L (46-116); ALT/SGPT 17 U/L (7.0-40); AST/SGOT 24 U/L (<34); BILIRUBIN,TOTAL 0.5 MG/DL (0.3-1.2); BLOOD UREA NITROGEN 14 MG/DL (9-23); CALCIUM LEVEL 9.7 MG/DL (8.5-10.1); CARBON DIOXIDE LEVEL 25 MMOL/L (20-31); CHLORIDE LEVEL 106 MMOL/L (98-107); CHOLESTEROL LEVEL 151 MG/DL (<200); CHOLESTEROL RISK RATIO 2.99 (<5); CREATININE FOR GFR 0.72 MG/DL (0.55-1.30); FREE T4 1.11 NG/DL (0.89-1.76); GLOMERULAR FILTRATION RATE > 60.0 (>51); GLUCOSE, FASTING 88 MG/DL (60-100); HDL CHOLESTEROL 50.4 MG/DL (>40); LDL CHOLESTEROL 81.2 MG/DL (<100); NON-HDL-C 100.6 MG/DL; POTASSIUM SERUM 4.2 MMOL/L (3.5-5.1); SODIUM LEVEL 141 MMOL/L (136-145); TRIGLYCERIDES LEVEL 97 MG/DL (<150)
[2023-10-16 16:04] LABS: IRON (FE) 68 UG/DL (50-170)
[2023-10-16 16:05] LABS: PERCENT SATURATION 21.1 % (13.2-45.0); TOTAL IRON BINDING CAPACITY 323 UG/DL (250-425)
[2023-10-16 16:09] LABS: FERRITIN 37.1 NG/ML (7.3-270.7); FOLATE 13.6 NG/ML (>5.4); VITAMIN B12 LEVEL 446 PG/ML (211-911)
== END ==
LOC: M WUC 08:04
PROVIDERS: ATTEND Family Medicine
DX: E78.00 Pure hypercholesterolemia, unspecified (principal); K21.9 Gastro-esophageal reflux disease without esophagitis

== ENCOUNTER → 2023-10-23 | Outpatient (CLI) | payer OTHER | LOC: M PLALAB 10:53 | PROVIDERS: ATTEND Family Medicine | DX: M25.552 Pain in left hip (principal) ==

== ENCOUNTER → 2024-04-30 | Outpatient (CLI) | payer OTHER ==
[2024-04-30 11:21] LABS: BASO # 0.1 10^3/uL (0.0-0.2); BASO % 0.9 % (0.0-1.0); EOS # 0.3 10^3/uL (0.0-0.5); EOS % 2.8 % (0.0-3.0); HEMATOCRIT 44.8 % (36.0-47.0); HEMOGLOBIN 14.1 g/dl (12.0-15.5); LYMPH # 2.4 10^3/uL (1.5-5.0); LYMPH % 27.6 % (24.0-44.0); MEAN CORPUSCULAR HEMOGLOBIN 24.6 pg (27.0-33.0); MEAN CORPUSCULAR HGB CONC 31.5 g/dl (32.0-36.5); MEAN CORPUSCULAR VOLUME 78.2 fl (80.0-96.0); MONO # 0.6 10^3/uL (0.0-0.8); MONO % 7.2 % (2.0-8.0); NEUTROPHILS # 5.4 10^3/uL (1.5-8.5); PLATELET COUNT, AUTOMATED 216 10^3/uL (150-450); RED BLOOD COUNT 5.73 10^6/uL (4.00-5.40); WHITE BLOOD COUNT 8.9 10^3/uL (4.0-10.0)
[2024-04-30 11:40] LABS: ALBUMIN 4.2 G/DL (3.2-5.2); ALKALINE PHOSPHATASE 64 U/L (35-104); ALT/SGPT 19 U/L (7.0-40); AST/SGOT 17 U/L (<34); BILIRUBIN,TOTAL 0.6 MG/DL (0.3-1.2); BLOOD UREA NITROGEN 11 MG/DL (9-23); CALCIUM LEVEL 10.2 MG/DL (8.5-10.1); CARBON DIOXIDE LEVEL 29 MMOL/L (20-31); CHLORIDE LEVEL 107 MMOL/L (98-107); CHOLESTEROL LEVEL 159 MG/DL (<200); CHOLESTEROL RISK RATIO 3.11 (<5); CREATININE FOR GFR 0.74 MG/DL (0.55-1.30); GLOMERULAR FILTRATION RATE > 60.0 (>51); GLUCOSE, FASTING 98 MG/DL (60-100); HDL CHOLESTEROL 51.1 MG/DL (>40); LDL CHOLESTEROL 87.1 MG/DL (<100); NON-HDL-C 107.9 MG/DL; POTASSIUM SERUM 4.5 MMOL/L (3.5-5.1); SODIUM LEVEL 142 MMOL/L (136-145); TOTAL PROTEIN 7.3 G/DL (5.7-8.2); TRIGLYCERIDES LEVEL 104 MG/DL (<150)
[2024-04-30 11:41] LABS: FREE T4 1.33 NG/DL (0.89-1.76); THYROID STIMULATING HORMONE 0.924 uIU/ML (0.55-4.78)
== END ==
LOC: M WUC 08:08
PROVIDERS: ATTEND Family Medicine
DX: E78.00 Pure hypercholesterolemia, unspecified (principal)

== ENCOUNTER → 2024-05-28 | Outpatient (CLI) | payer OTHER | LOC: M RAD 09:56 | PROVIDERS: ATTEND Family Medicine | DX: I82.811 Embolism and thrombosis of superficial veins of right lower extremity (principal); R05.1 Acute cough ==

== ENCOUNTER → 2024-06-03 | Outpatient (CLI) | payer OTHER | LOC: M WHC 15:35 | PROVIDERS: ATTEND Family Medicine | DX: Z12.31 Encounter for screening mammogram for malignant neoplasm of breast (principal) ==

== ENCOUNTER 2024-08-28 10:19 | Day surgery (SDC) | payer OTHER ==
[~2024-08-28] VITALS: Ht 160 cm; Wt 72.2 kg
[~2024-08-28 10:19] MED LIST changes: +LIDOCAINE 2% 100MG/5ML SDV (FOR ANES.) As Ordered ONE; +OMEP-173 PO; +OSTETAB2 PO; +ROSU20TA86 PO; +ZYRTTAB8 PO; +propofoL 200 MG/20 ML VIAL As Ordered ONE
[2024-08-28] MEDS ORDERED: GLYCOPYRROLATE INJ 0.2 MG/ML 2 ML VIAL As Ordered ONE (11:39)
[2024-08-28 12:25] VITALS: BP 115/62; O2SAT 98
== END 2024-08-28 12:34 | disposition home or self-care (01) ==
LOC: M OPP 10:19
PROVIDERS: ATTEND Internal Medicine Gastroenterology
DX: K22.70 Barrett's esophagus without dysplasia (principal); R12 Heartburn; K22.89 Other specified disease of esophagus; Z88.1 Allergy status to other antibiotic agents; F17.210 Nicotine dependence, cigarettes, uncomplicated; Z80.0 Family history of malignant neoplasm of digestive organs; Z15.09 Genetic susceptibility to other malignant neoplasm
CPT/HCPCS: 43239; 45378; 88305; J1596

== ENCOUNTER → 2024-10-20 | Outpatient (REF) | payer OTHER ==
[~2024-10-20] MED LIST changes: -LIDOCAINE 2% 100MG/5ML SDV (FOR ANES.) As Ordered ONE; -propofoL 200 MG/20 ML VIAL As Ordered ONE
== END ==
LOC: M LAB REF 16:44
PROVIDERS: ATTEND Nurse Practitioner Adult Health
DX: Z20.828 Contact with and (suspected) exposure to other viral communicable diseases (principal)

== ENCOUNTER → 2024-10-29 | Outpatient (CLI) | payer OTHER ==
[2024-10-29 13:56] LABS: BASO # 0.1 10^3/uL (0.0-0.2); BASO % 0.6 % (0.0-1.0); EOS # 0.3 10^3/uL (0.0-0.5); EOS % 3.1 % (0.0-3.0); HEMATOCRIT 46.3 % (36.0-47.0); HEMOGLOBIN 14.6 g/dl (12.0-15.5); LYMPH # 2.6 10^3/uL (1.5-5.0); LYMPH % 30.5 % (24.0-44.0); MEAN CORPUSCULAR HEMOGLOBIN 24.5 pg (27.0-33.0); MEAN CORPUSCULAR HGB CONC 31.5 g/dl (32.0-36.5); MEAN CORPUSCULAR VOLUME 77.6 fl (80.0-96.0); MONO # 0.6 10^3/uL (0.0-0.8); MONO % 6.6 % (2.0-8.0); NEUTROPHILS # 4.9 10^3/uL (1.5-8.5); PLATELET COUNT, AUTOMATED 222 10^3/uL (150-450); RED BLOOD COUNT 5.97 10^6/uL (4.00-5.40); WHITE BLOOD COUNT 8.4 10^3/uL (4.0-10.0)
[2024-10-29 14:26] LABS: FREE T4 1.29 NG/DL (0.89-1.76); THYROID STIMULATING HORMONE 1.201 uIU/ML (0.55-4.78)
[2024-10-29 14:28] LABS: ALBUMIN 4.2 G/DL (3.2-5.2); ALKALINE PHOSPHATASE 69 U/L (35-104); ALT/SGPT 20 U/L (7.0-40); AST/SGOT 18 U/L (<34); BILIRUBIN,TOTAL 0.5 MG/DL (0.3-1.2); BLOOD UREA NITROGEN 12 MG/DL (9-23); CALCIUM LEVEL 9.7 MG/DL (8.5-10.1); CARBON DIOXIDE LEVEL 30 MMOL/L (20-31); CHLORIDE LEVEL 107 MMOL/L (98-107); CHOLESTEROL LEVEL 152 MG/DL (<200); CHOLESTEROL RISK RATIO 3.06 (<5); GLOMERULAR FILTRATION RATE > 90.0 (>51); GLUCOSE, FASTING 79 MG/DL (60-100); HDL CHOLESTEROL 49.6 MG/DL (>40); LDL CHOLESTEROL 76.6 MG/DL (<100); NON-HDL-C 102.4 MG/DL; POTASSIUM SERUM 4.1 MMOL/L (3.5-5.1); SODIUM LEVEL 146 MMOL/L (136-145); TOTAL PROTEIN 7.4 G/DL (5.7-8.2); TRIGLYCERIDES LEVEL 129 MG/DL (<150)
== END ==
LOC: M WUC 08:09
PROVIDERS: ATTEND Family Medicine
DX: E78.00 Pure hypercholesterolemia, unspecified (principal); Z13.0 Encounter for screening for diseases of the blood and blood-forming organs and certain disorders involving the immune mechanism; Z13.29 Encounter for screening for other suspected endocrine disorder

== ENCOUNTER → 2025-04-14 | Outpatient (CLI) | payer OTHER ==
[~2025-04-14] MED LIST changes: -PRAV40TA2 PO; +PRAV40TA85 PO; -RA T500C2 PO; +TURM500C10 PO
[2025-04-14 12:46] LABS: BASO # 0.1 10^3/uL (0.0-0.2); BASO % 1.1 % (0.0-1.0); EOS # 0.3 10^3/uL (0.0-0.5); EOS % 3.3 % (0.0-3.0); LYMPH # 2.9 10^3/uL (1.5-5.0); LYMPH % 30.9 % (24.0-44.0); MONO # 0.6 10^3/uL (0.0-0.8); MONO % 6.9 % (2.0-8.0); NEUTROPHILS # 5.3 10^3/uL (1.5-8.5); NEUTROPHILS % 57.6 % (36.0-66.0); PLATELET COUNT, AUTOMATED 234 10^3/uL (150-450)
[2025-04-14 12:50] LABS: FREE T4 1.21 NG/DL (0.89-1.76)
[2025-04-14 12:52] LABS: ALT/SGPT 19 U/L (7.0-40); AST/SGOT 25 U/L (<34); CALCIUM LEVEL 9.5 MG/DL (8.5-10.1); CARBON DIOXIDE LEVEL 28 MMOL/L (20-31); CHLORIDE LEVEL 107 MMOL/L (98-107); CHOLESTEROL LEVEL 156 MG/DL (<200); CHOLESTEROL RISK RATIO 2.89 (<5); CREATININE FOR GFR 0.73 MG/DL (0.55-1.30); GLOMERULAR FILTRATION RATE > 90.0 (>51); LDL CHOLESTEROL 80.1 MG/DL (<100); NON-HDL-C 102.1 MG/DL; POTASSIUM SERUM 4.4 MMOL/L (3.5-5.1); SODIUM LEVEL 144 MMOL/L (136-145); TRIGLYCERIDES LEVEL 110 MG/DL (<150)
== END ==
LOC: M WUC 08:03
PROVIDERS: ATTEND Family Medicine
DX: Z13.0 Encounter for screening for diseases of the blood and blood-forming organs and certain disorders involving the immune mechanism (principal); Z13.29 Encounter for screening for other suspected endocrine disorder; E78.00 Pure hypercholesterolemia, unspecified

== ENCOUNTER → 2025-06-04 | Outpatient (CLI) | payer OTHER | LOC: M WHC 07:22 | PROVIDERS: ATTEND Family Medicine | DX: Z12.31 Encounter for screening mammogram for malignant neoplasm of breast (principal); Z13.820 Encounter for screening for osteoporosis; R92.323 Mammographic fibroglandular density, bilateral breasts ==